=== PATIENT | male | born 1945 | race Caucasian/White ===

== ENCOUNTER 2019-03-01 06:37 | Inpatient (IN) | payer MEDICARE, MEDICAID ==
[~2019-03-01] VITALS: Ht 175.3 cm; Wt 74.7 kg
--- NOTE | 2019-03-01 07:15 | NUR ---
ASSUMED CARE OF PATIENT. PATIENT WAS BIB BY [facility] FOR FLU SYMPTOMS, WEAKNESS AND SORE THROAT. PATIENT NOW REPORTING RAPID HEART RATE. DENIES CHEST PAIN. HEART RATE 110-115. QUESTIONABLE ST ELEVATION ON MONITOR. EKG PERFORMED GIVEN TO PROVIDER.
--- NOTE | 2019-03-01 07:19 | NUR ---
PATIENT RESTING ON GURNEY IN NO ACUTE DISTRESS. DENIES FURTHER NEEDS AT THIS TIME.
--- NOTE | 2019-03-01 07:23 | NUR ---
PATIENT STATES THAT HE WAS DISCHARGED FROM [facility] YESTERDAY FOR PNEUMONIA WITH NO ABX. STATES HE SPENT 4 DAYS THERE.
[2019-03-01] MEDS ORDERED: ASPIRIN 81 MG TABLET CHEW PO ONE (07:30)
[2019-03-01] MEDS ORDERED: ASPIRIN 81 MG TABLET CHEW ONE ×2 (07:42→10:00)
--- NOTE | 2019-03-01 07:49 | NUR ---
PATIENT MEDICATED PER EMAR. RESTING ON GURNEY WATCHING TV DENIES FURTHER NEEDS AT THIS TIME.
[2019-03-01 07:52] LABS: BASOPHILS # (AUTO) 0.02 x10^3/uL (0-0.1); BASOPHILS % (AUTO) 0 % (0-1); EOSINOPHILS # (AUTO) 0.11 x10^3/uL (0-0.4); EOSINOPHILS % (AUTO) 1 % (1-7); LYMPHOCYTES # (AUTO) 1.55 x10^3/uL (1-3.4); LYMPHOCYTES % (AUTO) 15 % (22-44); MD NO; MEAN CORPUSCULAR HEMOGLOBIN 30.2 pg (27.5-34.5); MEAN CORPUSCULAR HGB CONC 33.2 g/dL (33.2-36.2); MEAN CORPUSCULAR VOLUME 91.2 fL (81-97); MEAN PLATELET VOLUME 6.8 fL (7.4-10.4); MONOCYTES # (AUTO) 0.51 x10^3/uL (0.2-0.8); MONOCYTES % (AUTO) 5 % (2-9); NEUTROPHILS # (AUTO) 8.15 x10^3/uL (1.8-6.8); NEUTROPHILS % (AUTO) 79 % (42-75); PLATELET COUNT 309 x10^3/uL (130-400); RED BLOOD COUNT 4.93 x10^6/uL (4.38-5.82); RED CELL DISTRIBUTION WIDTH 14.7 % (9.4-14.8)
[2019-03-01 08:04] LABS: ALBUMIN 3.5 g/dL (3.4-5.0); ANION GAP 11 mmol/L (5-15); CALCIUM 9.2 mg/dL (8.5-10.1); CHLORIDE 101 mmol/L (98-107); CREATININE 0.83 mg/dL (0.7-1.3)
[2019-03-01 08:07] LABS: ALANINE AMINOTRANSFERASE 49 U/L (12-78); ALKALINE PHOSPHATASE 104 U/L (45-117); BILIRUBIN,TOTAL 0.3 mg/dL (0.2-1.0); TOTAL PROTEIN 8.1 g/dL (6.4-8.2); TROPONIN I 0.036 ng/mL (0.000-0.045)
[2019-03-01] MEDS ORDERED: LORazepam 1MG TABLET ONE (08:28)
[2019-03-01] MEDS ORDERED: LORazepam 1MG TABLET PO ONE (08:30)
--- NOTE | 2019-03-01 08:31 | NUR ---
PATIENT MEDICATED PER EMAR. RESTING ON GURNEY WITH CALL LIGHT IN REACH.
[2019-03-01] MEDS ORDERED: ASPIRIN 325 MG TABLET PO ONE (10:00)
--- NOTE | 2019-03-01 10:00 | NUR ---
LATE ENTRY: REPORT GIVEN TO LEODAN.
[2019-03-01] MEDS ORDERED: LORazepam 2 MG/ML, 1ML ONE (10:03)
[2019-03-01] MEDS ORDERED: SODIUM CHLORIDE FLUSH 10ML SYR IVF ONE (10:30)
[2019-03-01] MEDS ORDERED: LORazepam 2 MG/ML, 1ML IVPush ONE (10:30)
[2019-03-01 10:35] VITALS: BP 142/84
[2019-03-01] MEDS ORDERED: ASPIRIN 325 MG TABLET EC PO SCH (12:00)
[2019-03-01] MEDS ORDERED: POLYETHYLENE GLYCOL 17 GM PACKET PO PRN (12:00)
[2019-03-01] MEDS ORDERED: ENOXAPARIN 40 MG/0.4 ML SQ SCH (12:00)
[2019-03-01] MEDS ORDERED: ONDANSETRON ODT 4 MG PO PRN (12:00)
[2019-03-01] MEDS ORDERED: MULTIVITAMINS/MINERALS TABLET PO SCH (12:00)
[2019-03-01] MEDS ORDERED: NICOTINE 14MG/24 HR PATCH.TD24 TD SCH (12:00)
[2019-03-01] MEDS ORDERED: PROMETHAZINE 25 MG/ML, 1ML IM PRN (12:00)
[2019-03-01] MEDS ORDERED: LORazepam 0.5MG TABLET PO PRN (12:00)
[2019-03-01] MEDS ORDERED: hydrALAzine 20 MG/ML, 1ML IVPush PRN (12:00)
[2019-03-01] MEDS ORDERED: BISACODYL 10 MG SUPP PR PRN (12:00)
[2019-03-01] MEDS ORDERED: DOCUSATE 100 MG CAPSULE PO PRN (12:00)
[2019-03-01] MEDS ORDERED: LORazepam 1MG TABLET PO PRN ×4 (12:00)
[2019-03-01] MEDS ORDERED: OXYcodone IR 5MG TABLET PO PRN (12:00)
[2019-03-01] MEDS ORDERED: LORazepam 2 MG/ML, 1ML IV PRN ×5 (12:00)
[2019-03-01] MEDS ORDERED: FUROSEMIDE 20 MG/2 ML IV ONE (12:00)
[2019-03-01] MEDS ORDERED: ONDANSETRON 2MG/ML, 2ML IVPush PRN (12:00)
[2019-03-01] MEDS ORDERED: DOXYCYCLINE 100MG TABLET PO SCH (12:00)
[2019-03-01] MEDS ORDERED: LOSARTAN 25MG TABLET PO SCH (12:30)
[2019-03-01 12:40] VITALS: BP 157/98
[2019-03-01 12:43] LABS: C-REACTIVE PROTEIN, QUANT 3.7 mg/dL (0.02-0.49); FREE T4 (FREE THYROXINE) 0.99 ng/dL (0.76-1.46)
[2019-03-01] MEDS ORDERED: ALBUTEROL SULFATE 2.5 MG/3 ML NPPB PRN (13:30)
[2019-03-01 14:02] LABS: HEMOGLOBIN A1C 6.2 % (4.2-6.3)
== END 2019-03-01 14:06 | disposition left against medical advice (07) | DRG 292 ==
LOC: ED 10:18 → 4EST 11:05
PROVIDERS: ADMIT Internal Medicine; ATTEND Internal Medicine
DX: I11.0 Hypertensive heart disease with heart failure (principal); F10.239 Alcohol dependence with withdrawal, unspecified; J40 Bronchitis, not specified as acute or chronic; F17.210 Nicotine dependence, cigarettes, uncomplicated; R00.0 Tachycardia, unspecified; J44.9 Chronic obstructive pulmonary disease, unspecified; Z86.73 Personal history of transient ischemic attack (TIA), and cerebral infarction without residual deficits; Z91.14 Patient's other noncompliance with medication regimen; Z95.3 Presence of xenogenic heart valve; I50.33 Acute on chronic diastolic (congestive) heart failure
CPT/HCPCS: 36415; 71045; 71046; 80053; 83036; 83735; 83880; 84100; 84439; 84443; 84484; 85025; 85651; 86140; 87400; 93005; 96374; 99284; G0378; J2060

== ENCOUNTER 2019-03-01 15:12 | Emergency (ER) | payer MEDICARE, MEDICAID ==
[~2019-03-01] VITALS: Ht 175.3 cm; Wt 97.2 kg
[2019-03-01 15:32] VITALS: BP 154/88
[2019-03-01 16:09] LABS: RAPID INFLUENZA A Negative (Negative); RAPID INFLUENZA B Negative (Negative)
--- NOTE | 2019-03-01 17:05 | NUR ---
ER PROVIDER SPOKE TO HOSPITALIST TO DETERMINE IF RE-ADMISSION REQUIRED. HOSPITALIST REPORTS PATIENT SAFE TO BE DISCHARGED FROM ER WITH PO ABX PATIENT UPDATED VSS ON NIBP/POX AFEBRILE NO WOB NOTED
--- NOTE | 2019-03-01 17:24 | NUR ---
INSTRUCYTED PATIENT TO FILL RX [facility] THEN UTILIZE PROVIDED TAXI VOUCHER TO [facility] AT [address] [place] [address]. DAVE HAS MONEY AND PLANS ON RETURNING TO [place] SOON
== END 2019-03-01 17:26 | disposition home or self-care (01) ==
LOC: ED 16:45
DX: J06.9 Acute upper respiratory infection, unspecified (principal); R79.82 Elevated C-reactive protein (CRP); M79.10 Myalgia, unspecified site; F17.200 Nicotine dependence, unspecified, uncomplicated
CPT/HCPCS: 71046; 87400; 99284